=== PATIENT | male | born 1975 | race Caucasian/White ===

== ENCOUNTER 2019-12-29 09:41 | Emergency (ER) | payer BC ==
[2019-12-29 10:01] VITALS: BP 140/72
[2019-12-29] MEDS ORDERED: Cyclobenzaprine TAB* 10 MG PO ONE (10:34)
[2019-12-29] MEDS ORDERED: Ketorolac *IM* INJ* 60 MG/2 ML VIAL IM ONE (10:34)
--- NOTE | 2019-12-29 10:35 | UC ---
Back Pain HPI - HPI Summary HPI Summary: has had long history chronic low back pain, sees DR. Nava at pain clinic for treatment. was doing well until last pm when he turned wrong playing with dog, was in severe pain, took a flexeril and slept well. this am awoke in pain and came here. last med was last night (flexeril) denies saddle anesthesia, incontinence or blood in urine pain radiates to posterior R upper thigh - History of Current Complaint Chief Complaint: UCBackPain Stated Complaint: BACK PAIN Time Seen by Provider: 12/29/19 10:24 Hx Obtained From: Patient, Family/Lens Edger Onset/Duration: Sudden Onset Timing: Constant Severity Initially: Severe Severity Currently: Severe Pain Intensity: 10 Back Pain: Is Discrete @ - mid low back, Radiates To - R thigh Character: Throbbing, Spasmodic, Stiffness Aggravating Factor(s): Movement Alleviating Factor(s): Position Associated Signs And Symptoms: Positive: Negative. Negative: Weakness, Numbness , Tingling, Abdominal Pain, Flank Pain, Bladder Incontinence, Bowel Incontinence Related History: Similar Episode Dx As - low back strain - Risk Factors Cauda Equina Risk Factors: Negative - Allergies/Home Medications Allergies/Adverse Reactions: Allergies Allergy/AdvReac Type Severity Reaction Status Date / Time No Known Allergies Allergy Verified 12/29/19 10:01 PMH/Surg Hx/FS Hx/Imm Hx Previously Healthy: Yes - Surgical History Surgical History: None - Family History Known Family History: Positive: None - Social History Occupation: Employed Full-time Lives: With Family Alcohol Use: Weekly Alcohol Amount: 1-2 drinks/week Substance Use Type: None Smoking Status (MU): Never Smoked Tobacco - Immunization History Most Recent Tetanus Shot: 6-7 yrs ago Review of Systems All Other Systems Reviewed And Are Negative: Yes Constitutional: Positive: Negative Skin: Positive: Negative. Negative: Rash Respiratory: Positive: Negative Cardiovascular: Positive: Negative Gastrointestinal: Positive: Negative. Negative: Abdominal Pain, Vomiting, Nausea Genitourinary: Positive: Negative. Negative: Dysuria, Hematuria, Frequency, Urgency Musculoskeletal: Positive: Other: - low back pain Psychological: Positive: Negative Is Patient Immunocompromised?: No Physical Exam Triage Information Reviewed: Yes Appearance: Well-Appearing, Well-Nourished, Pain Distress - cries out if moves wrong, maintaining position of comfort Vital Signs: Initial Vital Signs Temp 99.1 F 12/29/19 09:58 Pulse 86 12/29/19 09:58 Resp 16 12/29/19 09:58 BP 140/72 12/29/19 09:58 Pulse Ox 100 12/29/19 09:58 Vital Signs Reviewed: Yes Respiratory Exam: Normal Respiratory: Positive: Lungs clear Cardiovascular Exam: Normal Cardiovascular: Positive: RRR Musculoskeletal: Positive: ROM Limited @ - d/t back spasm Neurological Exam: Normal Psychological Exam: Normal Skin Exam: Normal Re-Evaluation - Re-Evaluation First Eval Re-Evaluation Time: 11:30 Change: Improved - pain still present but better at this time Back Pain Course/Dx - Course Course Of Treatment: iStop Reference #: [id number] - Differential Dx/Diagnosis Differential Diagnosis/HQI/PQRI: Cauda Equina Syndrome, Compressive Cord Syndrome, Herniated Disc, Strain Provider Diagnosis: Low back strain Discharge ED - Sign-Out/Discharge Documenting (check all that apply): Patient Departure All imaging exams completed and their final reports reviewed: No Studies - Discharge Plan Condition: Improved Disposition: HOME Prescriptions: HYDROcodone/ACETAMIN 5-325 MG* [[place] 5-325 TAB*] 1 tab PO Q6H PRN #8 tab MDD 4 PRN Reason: Pain - Severe predniSONE 50 mg TAB [Deltasone 50 mg TAB] 50 mg PO DAILY #3 tab Patient Education Materials: Low Back Strain (ED) Forms: *Work Release Referrals: No Primary Care Phys,NOPCP [Primary Care Provider] - Clayton Brunner MD [Medical Doctor] - (next week as planned ) Additional Instructions: rest, and take muscle relaxer, prednisone and pain med as prescribed report to ER if your symptoms worsen - Billing Disposition and Condition Condition: IMPROVED Disposition: Home
== END 2019-12-29 12:19 | disposition home or self-care (01) ==
LOC: UCEAST 09:41
DX: S39.012A Strain of muscle, fascia and tendon of lower back, initial encounter (principal); X50.9XXA Other and unspecified overexertion or strenuous movements or postures, initial encounter; Y92.9 Unspecified place or not applicable
CPT/HCPCS: 96372; 99212; A9270-GY; G0463; J1885

== ENCOUNTER 2020-04-02 05:41 | Observation (INO) ==
[2020-04-02] MEDS ORDERED: Dexamethasone IV 4 MG/ML VIAL 1 ml VIAL IV SLOW PU ONE (06:00)
[2020-04-02] MEDS ORDERED: Famotidine IV 10 MG/ML 2 ml VIAL (20 mg) IV ONE (06:00)
[2020-04-02] MEDS ORDERED: Lactated Ringers 1000 ml BAG 1,000 ML IV SCH ×2 (06:00→19:00)
[2020-04-02] MEDS ORDERED: ceFAZolin 2 GM PREMIX in ORs 2 GM/50 ML BAG ONE (06:16)
[2020-04-02] MEDS ORDERED: Dexamethasone IV 4 MG/ML VIAL 1 ml VIAL ONE (06:16)
[2020-04-02] MEDS ORDERED: Famotidine IV 10 MG/ML 2 ml VIAL (20 mg) ONE (06:16)
[2020-04-02] MEDS ORDERED: Midazolam 5 mg/5 ml VIAL 1 mg/ml 5 ml VIAL (5 mg) ONE (07:07)
[2020-04-02] MEDS ORDERED: fentaNYL 100 mcg/2 ml 50 MCG/ML VIAL ONE ×4 (07:07→13:52)
[2020-04-02] MEDS ORDERED: Remifentanil 2 MG VIAL ONE ×2 (07:07→11:22)
[2020-04-02] MEDS ORDERED: Bacitracin INJECTION 50,000 UNITS ONE (07:11)
[2020-04-02] MEDS ORDERED: Bupivacaine 0.25% w/EPI 10 ML SDV ONE ×2 (07:11→12:19)
[2020-04-02] MEDS ORDERED: Morphine 10 MG/ML VIAL (1 ml) IV PRN (07:36)
[2020-04-02] MEDS ORDERED: DiMENhydriNATE IV 50 mg/ml 1 ml VIAL IV PUSH PRN (07:37)
[2020-04-02] MEDS ORDERED: Naloxone 0.4 mg VIAL 0.4 mg/ml 1 ml VIAL IV PRN (07:37)
[2020-04-02] MEDS ORDERED: oxyCODONE/Acetamin 5/325 mg TAB PO PRN (07:37)
[2020-04-02] MEDS ORDERED: Morphine 10 MG/ML VIAL (1 ml) ONE (07:41)
[2020-04-02] MEDS ORDERED: Succinylcholine 200 mg VIAL 20 mg/ml 10 ml VIAL (200 mg) ONE (08:29)
[2020-04-02] MEDS ORDERED: Propofol 1,500 MG/150 ML BTL ONE (08:29)
[2020-04-02] MEDS ORDERED: Propofol 10 MG/ML 20 ML BTL ONE (08:33)
[2020-04-02] MEDS ORDERED: Lidocaine 2% PF 5 ML VIAL ONE (08:33)
[2020-04-02] MEDS ORDERED: EPHEDrine (Pressors) 50 MG/ML VIAL ONE (10:01)
[2020-04-02] MEDS ORDERED: Ondansetron 4 mg VIAL 2 MG/ML 2 ml VIAL IV PRN (13:03)
[2020-04-02] MEDS ORDERED: Magnesium Hydroxide LIQ 30 ML UDC PO PRN (13:03)
[2020-04-02] MEDS: fentaNYL 100 mcg/2 ml 50 MCG/ML VIAL IV PRN ×5 (13:18→13:55)
[2020-04-02] MEDS ORDERED: oxyCODONE/Acetamin 5/325 mg TAB ONE (14:11)
[2020-04-02] MEDS ORDERED: Morphine 2 MG/ML SYRINGE IV PRN (18:48)
[2020-04-03 12:00] VITALS: BP 102/57
== END 2020-04-03 13:05 | disposition home or self-care (01) ==
LOC: AA 05:41 → INTOOBSV 05:41 → SSU 13:03
PROVIDERS: ADMIT Neurological Surgery; ATTEND Pediatrics